=== PATIENT | male | born 1935 | race Caucasian/White ===

== ENCOUNTER 2018-01-08 12:41 | Emergency (ER) | payer MEDICARE ==
[~2018-01-08 12:41] MED LIST: Lidocaine 1% w/Epinephrine 1:100K 30 ML VIAL ONE; Sodium Chloride Irrig Solution 250 ML BOT ONE
[2018-01-08 13:37] LABS: #Eosinphils 0.1 thou/uL (0.0-0.7); #Lymphocytes 0.9 thou/uL (1.20-3.40); #Monocytes 0.6 thou/uL (0.11-0.59); #Neutrophils 4.1 thou/uL (1.40-6.50); %Basophils 0.6 % (0.0-1.0); %Eosinophils 1.5 % (0.0-10.0); %Lymphocytes 15.9 % (21.0-51.0); %Monocytes 10.5 % (0.0-10.0); %Neutrophils 71.6 % (42.0-75.0); Mean Corpuscular HGB CONC 32.9 g/dL (32.0-36.0); Mean Corpuscular Hemoglobin 30.2 pg (27.0-31.0); Mean Corpuscular Volume 91.8 fL (78.0-98.0); Mean Platelet Volume 7.8 fL (7.4-10.4); Platelet Count 245 thou/uL (130-400); RBC Distribution Width 12.4 % (11.5-14.5); Red Blood Cell (RBC) Count 3.65 mill/uL (4.70-6.10); White Blood Cell (WBC) Count 5.7 thou/uL (4.8-10.8)
--- NOTE | 2018-01-08 13:55 | CT ---
CERVICAL SPINE CT WITHOUT IV CONTRAST: HISTORY: An 82-year-old male with a history of a neck injury following a fall at a halfway, with neck karla n. FINDINGS: There is minimal motion artifact. Extensive multilevel disk osteophytosis and facet arthrosis change s are noted with some variable severity canal, lateral recess, and foraminal stenosis. No evidence f or acute fracture or facet dislocation. Slight deformity of the C7 spinous process, which appears to be old. IMPRESSION: Cervical spondylosis. No acute fracture or facet dislocation. POS: C
--- NOTE | 2018-01-08 13:56 | CT ---
CT OF THE BRAIN WITHOUT CONTRAST: Indication: History of fall with head injury. FINDINGS: No definite acute infarct, hemorrhage, or hydrocephalus is present. There is moderate generalized cer ebral and cerebellar atrophy. The remote infarcts involving the right cerebellar hemisphere, both shandra lami, as well as the right globus pallidus. There is moderate chronic small vessel ischemic change. S eptum pallidum and third ventricle are midline. Mastoid air cells and paranasal sinuses are clear. Th e skull is intact. IMPRESSION: No acute intracranial abnormality. POS: [facility]
[2018-01-08 13:58] LABS: ALT (SGPT) 16 U/L (8-55); AST (SGOT) 20 U/L (5-34); Albumin 3.7 g/dL (3.4-4.8); Alkaline Phosphatase 90 U/L (40-150); Anion Gap 13 mmol/L (10-20); BUN (Urea Nitrogen) 25 mg/dL (8.4-25.7); Bilirubin, Total 0.4 mg/dL (0.2-1.2); CK (CPK) 69 U/L (30-200); Calc. Creatinine Clearance 0 mL/min (70-130); Calcium 9.5 mg/dL (7.8-10.44); Carbon Dioxide 30 mmol/L (23-31); Chloride 97 mmol/L (98-107); Estimated GFR-MDRD 66; Globulin 3.5 g/dL (2.4-3.5); Glucose 121 mg/dL (83-110); Potassium 4.7 mmol/L (3.5-5.1); Protein, Total 7.2 g/dL (5.8-8.1); Sodium 135 mmol/L (136-145)
[2018-01-08 14:08] LABS: CKMB 2.4 ng/mL (0-6.6); Troponin I 0.016 ng/mL (< 0.028)
== END 2018-01-08 15:05 ==
LOC: MADERS 12:41
DX: S01.81XA Laceration without foreign body of other part of head, initial encounter (principal); S51.012A Laceration without foreign body of left elbow, initial encounter; I25.10 Atherosclerotic heart disease of native coronary artery without angina pectoris; E11.9 Type 2 diabetes mellitus without complications; F03.90 Unspecified dementia, unspecified severity, without behavioral disturbance, psychotic disturbance, mood disturbance, and anxiety; Z86.73 Personal history of transient ischemic attack (TIA), and cerebral infarction without residual deficits; W19.XXXA Unspecified fall, initial encounter
CPT/HCPCS: 12013; 70450; 72125; 80053; 82550; 82553; 84484; 85025; 93005; J2001